=== PATIENT | female | born 1995 | race Caucasian/White ===

== ENCOUNTER 2016-10-21 01:09 | Emergency (ER) | payer MEDICAID ==
[~2016-10-21] VITALS: Ht 175.3 cm; Wt 96.7 kg
[~2016-10-21 01:09] MED LIST: ALBU8.5H3 INH; AMLO2.5T PO; BUDE10.2 INH; CHOL200024 PO; FLUT1DIS IH; HYDR25TA6 PO; LABE200T3 PO; LACO200T PO; MAGN100T PO; MULT-257 PO; TESTOSTERONE PO
[2016-10-21] MEDS ORDERED: ALBU18HF INH (02:01)
[2016-10-21] MEDS ORDERED: MELO-190 PO (02:01)
[2016-10-21] MEDS ORDERED: ONDANSETRON 2MG/ML, 2ML ONE (02:16)
[2016-10-21] MEDS ORDERED: MORPHINE SULFATE 4 MG/ML, 1ML ONE (02:16)
[2016-10-21 02:30] LABS: BLOOD UREA NITROGEN 10 mg/dL (7-18)
[2016-10-21] MEDS ORDERED: MORPHINE SULFATE 4 MG/ML, 1ML IVPush PRN (02:30)
[2016-10-21] MEDS ORDERED: ONDANSETRON 2MG/ML, 2ML IVPush ONE (02:30)
[2016-10-21] MEDS ORDERED: SODIUM CHLORIDE FLUSH 10ML SYR IVF ONE (02:30)
[2016-10-21] MEDS ORDERED: SODIUM CHLORIDE 0.9% 1,000ML IVBOLUS ONE (02:30)
[2016-10-21 02:34] LABS: ASPARTATE AMINO TRANSFERASE 18 U/L (15-37)
[2016-10-21] MEDS ORDERED: OMNIPAQUE 350 MG/ML, 100ML BOTTLE ONE (04:57)
[2016-10-21] MEDS ORDERED: SILVER NITRATE STICK TP ONE ×2 (05:30→05:40)
[2016-10-21 05:48] VITALS: BP 123/61
== END 2016-10-21 05:49 | disposition home or self-care (01) ==
LOC: ED 02:53
DX: R10.33 Periumbilical pain (principal); R11.10 Vomiting, unspecified
CPT/HCPCS: 36415; 74177; 76700; 80053; 81001; 85025; 87086; 96361; 96374; 96375; 99285; J2405; J7030; Q9967

== ENCOUNTER 2016-10-21 21:42 | Emergency (ER) | payer MEDICAID ==
[~2016-10-21] VITALS: Ht 170.2 cm; Wt 95.0 kg
[~2016-10-21 21:42] MED LIST changes: +ALBU18HF INH; +MELO-190 PO
[2016-10-21 21:49] VITALS: BP 135/89
[2016-10-21] MEDS ORDERED: SODIUM CHLORIDE FLUSH 10ML SYR IVF ONE (22:00)
[2016-10-21] MEDS ORDERED: DIPHENHYDRAMINE 50 MG/ML, 1ML IVPush ONE (22:00)
[2016-10-21] MEDS ORDERED: PROCHLORPERAZINE 5 MG/ML, 2ML IVPush ONE (22:00)
[2016-10-21] MEDS ORDERED: SODIUM CHLORIDE 0.9% 1,000ML IVBOLUS ONE (22:00)
[2016-10-21] MEDS ORDERED: METOCLOPRAMIDE 5 MG/ML, 2ML IVPush ONE (22:00)
[2016-10-21] MEDS ORDERED: METOCLOPRAMIDE 5 MG/ML, 2ML ONE (22:44)
[2016-10-21] MEDS ORDERED: DIPHENHYDRAMINE 50 MG/ML, 1ML ONE (22:44)
[2016-10-21] MEDS ORDERED: PROCHLORPERAZINE 5 MG/ML, 2ML ONE (22:44)
== END 2016-10-22 00:02 | disposition home or self-care (01) ==
LOC: ED 23:50
DX: G43.109 Migraine with aura, not intractable, without status migrainosus (principal); R10.33 Periumbilical pain
CPT/HCPCS: 70450; 81001; 87086; 96361; 96374; 96375; 99285; J0780; J1200; J2765; J7030

== ENCOUNTER 2016-11-22 09:01 | Emergency (ER) | payer MEDICAID ==
[~2016-11-22] VITALS: Ht 175.3 cm; Wt 95.3 kg
[2016-11-22 09:05] VITALS: BP 142/92
[2016-11-22] MEDS ORDERED: PHENAZOPYRIDINE 200 MG TABLET PO ONE (09:30)
[2016-11-22] MEDS ORDERED: PHENAZOPYRIDINE 200 MG TABLET ONE (09:32)
[2016-11-22] MEDS ORDERED: DIVA250T4 PO (09:35)
[2016-11-22] MEDS ORDERED: LACO200T PO (09:35)
[2016-11-22] MEDS ORDERED: LEVE500T53 PO (09:35)
[2016-11-22 09:51] LABS: HCG UR OBC PASS
[2016-11-22 09:52] LABS: PATH.CAST-FLAG NOT PRESENT; SPERM-FLAG NOT PRESENT; SRC-FLAG NOT PRESENT; XTAL-FLAG NOT PRESENT; YLC-FLAG NOT PRESENT
== END 2016-11-22 10:54 | disposition home or self-care (01) ==
LOC: ED 09:46
DX: N30.00 Acute cystitis without hematuria (principal); J45.909 Unspecified asthma, uncomplicated; G40.909 Epilepsy, unspecified, not intractable, without status epilepticus; R51 Headache; G89.29 Other chronic pain
CPT/HCPCS: 81001; 81025; 87077; 87086; 87186; 99284

== ENCOUNTER 2017-08-16 17:33 | Emergency (ER) | payer MEDICAID ==
[~2017-08-16] VITALS: Ht 175.3 cm; Wt 99.1 kg
[~2017-08-16 17:33] MED LIST changes: -ALBU8.5H3 INH; +ALBU8.5H8 INH; +CEPH-368 PO; +DIVA250T4 PO; +LEVE500T53 PO; -MELO-190 PO; +MELO7.5T31 PO; +ONDA4TAB10 PO; +[UNRECOGNIZED DRUG - OTHER] PO
[2017-08-16 17:35] VITALS: BP 135/81
[2017-08-16 18:15] LABS: MICROSCOPIC INDICATED
[2017-08-16] MEDS ORDERED: CLOTRIMAZOLE VAGINAL CRM 1%, 45GM VG ONE (21:00)
== END 2017-08-16 18:51 | disposition home or self-care (01) ==
LOC: ED 18:40
DX: O26.892 Other specified pregnancy related conditions, second trimester (principal); N89.8 Other specified noninflammatory disorders of vagina; J45.909 Unspecified asthma, uncomplicated; Z3A.21 21 weeks gestation of pregnancy
CPT/HCPCS: 81001; 99283

== ENCOUNTER 2018-03-08 03:39 | Observation (INO) | payer MEDICAID ==
[~2018-03-08] VITALS: Ht 175.3 cm; Wt 91.7 kg
[~2018-03-08 03:39] MED LIST changes: -AMLO2.5T PO; +AMLO2.5T3 PO; -LABE200T3 PO; +LABE200T6 PO; +NITR100C56 PO
[2018-03-08] MEDS ORDERED: LORA-445 PO (04:01)
[2018-03-08] MEDS ORDERED: DOCU-131 PO (04:01)
[2018-03-08] MEDS ORDERED: OMEP-110 PO (04:01)
[2018-03-08] MEDS ORDERED: DIVA-59 PO (04:01)
[2018-03-08] MEDS ORDERED: IBUP-1222 PO (04:01)
[2018-03-08] MEDS ORDERED: LEVE500T8 PO (04:01)
[2018-03-08 04:40] LABS: BASOPHILS # (AUTO) 0.05 x10^3/uL (0-0.1); BASOPHILS % (AUTO) 1 % (0-1); EOSINOPHILS # (AUTO) 0.02 x10^3/uL (0-0.4); EOSINOPHILS % (AUTO) 0 % (1-7); LYMPHOCYTES # (AUTO) 1.81 x10^3/uL (1-3.4); LYMPHOCYTES % (AUTO) 21 % (22-44); MD NO; MEAN CORPUSCULAR HEMOGLOBIN 25.1 pg (27.0-34.8); MEAN CORPUSCULAR HGB CONC 32.2 g/dL (32.4-35.8); MEAN PLATELET VOLUME 8.5 fL (7.4-10.4); MONOCYTES # (AUTO) 0.57 x10^3/uL (0.2-0.8); MONOCYTES % (AUTO) 7 % (2-9); NEUTROPHILS # (AUTO) 6.37 x10^3/uL (1.8-6.8); NEUTROPHILS % (AUTO) 72 % (42-75); PLATELET COUNT 252 x10^3/uL (130-400); RED BLOOD COUNT 4.83 x10^6/uL (3.82-5.3)
[2018-03-08 05:02] LABS: ALBUMIN 3.8 g/dL (3.4-5.0); ANION GAP 7 mmol/L (5-15); CALCIUM 8.6 mg/dL (8.5-10.1); CHLORIDE 107 mmol/L (98-107); CREATININE 0.65 mg/dL (0.55-1.02)
[2018-03-08] MEDS ORDERED: BACITRACIN ZINC OINT 500U/GM, 0.9 GM ONE (05:03)
[2018-03-08 05:11] LABS: ACETAMINOPHEN < 2 mcg/mL (10-30); SALICYLATE LEVEL < 1.7 mg/dL (2.8-20.0)
[2018-03-08] MEDS ORDERED: LEVETIRACETAM 500 MG TABLET ONE (15:17)
[2018-03-08 15:37] LABS: AMPHETAMINE SCREEN, URINE Negative (Negative); BARBITURATE SCREEN, URINE Negative (Negative); BENZODIAZEPINE SCREEN, URINE Negative (Negative); CANNABINOID SCREEN, URINE Negative (Negative); COCAINE SCREEN, URINE Negative (Negative); METHADONE SCREEN, URINE Negative (Negative); OPIATE SCREEN, URINE Negative (Negative)
[2018-03-08] MEDS ORDERED: ACETAMINOPHEN 325 MG TABLET PO PRN (18:00)
[2018-03-08] MEDS: HEPARIN 5,000 UNITS/ML, 1ML SQ SCH ×2 (18:00→19:32)
[2018-03-08] MEDS ORDERED: ONDANSETRON ODT 4 MG PO PRN ×2 (18:00→18:30)
[2018-03-08] MEDS ORDERED: ASA/APAP/ CAFFEINE TABLET PO PRN (18:00)
[2018-03-08] MEDS ORDERED: IBUPROFEN 600 MG TABLET PO PRN (18:30)
[2018-03-08] MEDS ORDERED: DOCUSATE 100 MG CAPSULE PO PRN (18:30)
[2018-03-08] MEDS ORDERED: ALBUTEROL/IPRATROPIUM 2.5MG/0.5MG, 3 ML NPPB PRN (19:00)
[2018-03-08 20:23] VITALS: BP 106/60
[2018-03-08] MEDS ORDERED: DIVALPROEX 500 MG TABLET.DR PO SCH (21:00)
[2018-03-08] MEDS ORDERED: LEVETIRACETAM 500 MG TABLET PO SCH (21:00)
[2018-03-08] MEDS: DIVALPROEX 500 MG TABLET.DR PO SCH (21:23)
[2018-03-08] MEDS: LEVETIRACETAM 500 MG TABLET PO SCH (21:24)
[2018-03-09 01:25] VITALS: BP 119/68
[2018-03-09] MEDS ORDERED: LORazepam 2 MG/ML, 1ML ONE (01:39)
[2018-03-09] MEDS: LORazepam 2 MG/ML, 1ML IVPush PRN ×4 (01:40→21:14)
[2018-03-09 07:16] VITALS: BP 107/70
[2018-03-09 09:05] VITALS: BP 129/76
[2018-03-09] MEDS: LEVETIRACETAM 500 MG TABLET PO SCH ×2 (10:13→21:14)
[2018-03-09] MEDS: LORazepam 0.5MG TABLET PO SCH (10:13)
[2018-03-09] MEDS: OMEPRAZOLE 20 MG CAPSULE.DR PO SCH (10:14)
[2018-03-09] MEDS: HEPARIN 5,000 UNITS/ML, 1ML SQ SCH ×3 (10:14→23:16)
[2018-03-09] MEDS: DIVALPROEX 500 MG TABLET.DR PO SCH ×2 (10:14→21:14)
[2018-03-09 12:51] VITALS: BP 102/41
[2018-03-09 13:01] VITALS: BP 120/70
[2018-03-09 18:30] VITALS: BP 93/62
[2018-03-10 01:29] VITALS: BP 104/61
[2018-03-10] MEDS: LORazepam 2 MG/ML, 1ML IVPush PRN (02:13)
[2018-03-10 07:50] VITALS: BP 93/52
[2018-03-10] MEDS: DIVALPROEX 500 MG TABLET.DR PO SCH (09:20)
[2018-03-10] MEDS: OMEPRAZOLE 20 MG CAPSULE.DR PO SCH (09:20)
[2018-03-10] MEDS: LEVETIRACETAM 500 MG TABLET PO SCH (09:20)
[2018-03-10] MEDS: LORazepam 0.5MG TABLET PO SCH (09:20)
[2018-03-10] MEDS: HEPARIN 5,000 UNITS/ML, 1ML SQ SCH ×2 (10:00→17:56)
[2018-03-10 12:50] VITALS: BP 106/68
[2018-03-10] MEDS ORDERED: LORazepam 1MG TABLET ONE (19:29)
[2018-03-10] MEDS ORDERED: LORazepam 1MG TABLET PO PRN (19:30)
[2018-03-10] MEDS ORDERED: PRAZOSIN 1 MG CAPSULE PO SCH (21:00)
== END 2018-03-10 20:40 ==
LOC: ED 03:56 → EDIP 17:09 → 3NE 18:14
PROVIDERS: ADMIT Internal Medicine; ATTEND Internal Medicine
DX: R45.851 Suicidal ideations (principal); F41.0 Panic disorder [episodic paroxysmal anxiety]; G40.909 Epilepsy, unspecified, not intractable, without status epilepticus; J45.909 Unspecified asthma, uncomplicated; M06.9 Rheumatoid arthritis, unspecified; F32.9 Major depressive disorder, single episode, unspecified; F43.10 Post-traumatic stress disorder, unspecified; F43.24 Adjustment disorder with disturbance of conduct; F60.3 Borderline personality disorder; G89.11 Acute pain due to trauma
CPT/HCPCS: 36415; 73110; 73564; 80048; 80164; 80307; 80329; 82040; 84703; 85025; 95816; 96372; 96374; 96376; 99285; G0378; J1644; J2060; G0480

== ENCOUNTER 2018-04-26 21:26 | Emergency (ER) | payer MEDICAID ==
[~2018-04-26] VITALS: Ht 172.7 cm; Wt 89.0 kg
[~2018-04-26 21:26] MED LIST changes: +DIVA-59 PO; +DOCU-131 PO; +IBUP-1222 PO; +LEVE500T8 PO; +LORA-445 PO; +OMEP-110 PO
[2018-04-26 21:53] LABS: BASOPHILS # (AUTO) 0.09 x10^3/uL (0-0.1); BASOPHILS % (AUTO) 1 % (0-1); EOSINOPHILS # (AUTO) 0.04 x10^3/uL (0-0.4); EOSINOPHILS % (AUTO) 0 % (1-7); LYMPHOCYTES # (AUTO) 2.53 x10^3/uL (1-3.4); LYMPHOCYTES % (AUTO) 27 % (22-44); MD NO; MEAN CORPUSCULAR HEMOGLOBIN 25.3 pg (27.0-34.8); MEAN CORPUSCULAR HGB CONC 33.1 g/dL (32.4-35.8); MEAN CORPUSCULAR VOLUME 76.3 fL (80-100); MEAN PLATELET VOLUME 7.5 fL (7.4-10.4); MONOCYTES # (AUTO) 0.71 x10^3/uL (0.2-0.8); MONOCYTES % (AUTO) 8 % (2-9); NEUTROPHILS # (AUTO) 6.08 x10^3/uL (1.8-6.8); NEUTROPHILS % (AUTO) 64 % (42-75); PLATELET COUNT 297 x10^3/uL (130-400); RED BLOOD COUNT 4.46 x10^6/uL (3.82-5.3); RED CELL DISTRIBUTION WIDTH 18.6 % (9.6-15.2)
[2018-04-26 22:06] LABS: ALBUMIN 3.4 g/dL (3.4-5.0); ANION GAP 6 mmol/L (5-15); CALCIUM 8.3 mg/dL (8.5-10.1); CHLORIDE 109 mmol/L (98-107); CREATININE 0.68 mg/dL (0.55-1.02)
[2018-04-26] MEDS ORDERED: GABA300C10 PO (22:21)
[2018-04-26] MEDS ORDERED: LEVE500T53 PO (22:21)
[2018-04-26] MEDS ORDERED: ALBU18HF INH (22:21)
[2018-04-26] MEDS ORDERED: CHOL2000 PO (22:21)
[2018-04-26] MEDS ORDERED: ESCI10TA10 PO (22:21)
[2018-04-26 23:01] VITALS: BP 96/61
== END 2018-04-26 23:04 | disposition home or self-care (01) ==
LOC: ED 22:08
DX: R56.9 Unspecified convulsions (principal); G89.29 Other chronic pain; J45.909 Unspecified asthma, uncomplicated
CPT/HCPCS: 36415; 80048; 82040; 85025; 99284

== ENCOUNTER 2018-04-28 07:56 | Inpatient (IN) | payer MEDICAID ==
[~2018-04-28] VITALS: Ht 175.3 cm; Wt 85.7 kg
[~2018-04-28 07:56] MED LIST changes: +CHOL2000 PO; +ESCI10TA10 PO; +GABA300C10 PO
[2018-04-28] MEDS ORDERED: ONDANSETRON ODT 4 MG ONE (08:21)
[2018-04-28] MEDS ORDERED: KETOROLAC 30 MG/1 ML ONE (08:21)
[2018-04-28] MEDS ORDERED: KETOROLAC 30 MG/1 ML IM ONE (08:30)
[2018-04-28] MEDS ORDERED: ONDANSETRON ODT 4 MG PO ONE (08:30)
[2018-04-28] MEDS ORDERED: MIDAZOLAM 1 MG/ML, 2ML ONE (09:51)
[2018-04-28] MEDS ORDERED: LORazepam 2 MG/ML, 1ML ONE ×2 (09:54→10:43)
[2018-04-28] MEDS ORDERED: SODIUM CHLORIDE FLUSH 10ML SYR IVF ONE (10:00)
[2018-04-28] MEDS ORDERED: LORazepam 2 MG/ML, 1ML IVPush ONE ×2 (10:00→11:00)
[2018-04-28 10:46] LABS: BASOPHILS # (AUTO) 0.02 x10^3/uL (0-0.1); BASOPHILS % (AUTO) 0 % (0-1); EOSINOPHILS # (AUTO) 0.04 x10^3/uL (0-0.4); EOSINOPHILS % (AUTO) 1 % (1-7); LYMPHOCYTES # (AUTO) 2.11 x10^3/uL (1-3.4); LYMPHOCYTES % (AUTO) 34 % (22-44); MD NO; MEAN CORPUSCULAR HEMOGLOBIN 25.3 pg (27.0-34.8); MEAN CORPUSCULAR VOLUME 76.7 fL (80-100); MONOCYTES # (AUTO) 0.54 x10^3/uL (0.2-0.8); MONOCYTES % (AUTO) 9 % (2-9); NEUTROPHILS # (AUTO) 3.53 x10^3/uL (1.8-6.8); NEUTROPHILS % (AUTO) 57 % (42-75); PLATELET COUNT 253 x10^3/uL (130-400); RED BLOOD COUNT 4.43 x10^6/uL (3.82-5.3); RED CELL DISTRIBUTION WIDTH 18.2 % (9.6-15.2)
[2018-04-28 10:57] LABS: ALANINE AMINOTRANSFERASE 19 U/L (12-78); ALBUMIN 3.3 g/dL (3.4-5.0); ANION GAP 8 mmol/L (5-15); CALCIUM 8.1 mg/dL (8.5-10.1); CHLORIDE 106 mmol/L (98-107); CREATININE 0.62 mg/dL (0.55-1.02)
[2018-04-28 11:01] LABS: ALKALINE PHOSPHATASE 90 U/L (45-117); BILIRUBIN,TOTAL 0.2 mg/dL (0.2-1.0); TOTAL PROTEIN 6.7 g/dL (6.4-8.2)
[2018-04-28 11:41] LABS: AMPHETAMINE SCREEN, URINE Negative (Negative); BARBITURATE SCREEN, URINE Negative (Negative); BENZODIAZEPINE SCREEN, URINE Positive (Negative); CANNABINOID SCREEN, URINE Negative (Negative); COCAINE SCREEN, URINE Negative (Negative); METHADONE SCREEN, URINE Negative (Negative); OPIATE SCREEN, URINE Positive (Negative)
[2018-04-28] MEDS ORDERED: ONDANSETRON 2MG/ML, 2ML IVPush PRN (12:30)
[2018-04-28] MEDS ORDERED: LORazepam 1MG TABLET PO PRN (12:30)
[2018-04-28] MEDS ORDERED: ONDANSETRON ODT 4 MG PO PRN (12:30)
[2018-04-28] MEDS ORDERED: ACETAMINOPHEN 325 MG TABLET PO PRN (12:30)
[2018-04-28 12:42] VITALS: BP 100/67
[2018-04-28 14:08] VITALS: BP 100/67
[2018-04-28] MEDS: IBUPROFEN 600 MG TABLET PO SCH ×2 (16:21→20:31)
[2018-04-28] MEDS: ENOXAPARIN 40 MG/0.4 ML SQ SCH (16:22)
[2018-04-28] MEDS: LORazepam 2 MG/ML, 1ML IVPush PRN (19:12)
[2018-04-28 19:42] VITALS: BP 99/65
[2018-04-28] MEDS: DOCUSATE 100 MG CAPSULE PO SCH (20:30)
[2018-04-28] MEDS: DIVALPROEX 500 MG TABLET.DR PO SCH (20:31)
[2018-04-28] MEDS ORDERED: LEVETIRACETAM 500 MG TABLET PO SCH (21:00)
[2018-04-29 01:11] VITALS: BP 99/58
[2018-04-29] MEDS: IBUPROFEN 600 MG TABLET PO SCH ×4 (05:28→20:37)
[2018-04-29 06:58] VITALS: BP 99/65
[2018-04-29] MEDS: LORazepam 2 MG/ML, 1ML IVPush PRN ×3 (08:48→18:48)
[2018-04-29] MEDS: DOCUSATE 100 MG CAPSULE PO SCH ×2 (09:00→20:36)
[2018-04-29] MEDS ORDERED: LEVETIRACETAM 500 MG TABLET PO SCH (09:00)
[2018-04-29] MEDS: OMEPRAZOLE 20 MG CAPSULE.DR PO SCH (10:20)
[2018-04-29] MEDS: DIVALPROEX 500 MG TABLET.DR PO SCH ×2 (10:21→20:37)
[2018-04-29] MEDS: KETOROLAC 30 MG/1 ML IV PRN (11:45)
[2018-04-29 12:55] VITALS: BP 100/66
[2018-04-29] MEDS: ENOXAPARIN 40 MG/0.4 ML SQ SCH (16:40)
[2018-04-29 21:07] VITALS: BP 96/65
[2018-04-30] MEDS: KETOROLAC 30 MG/1 ML IV PRN (01:13)
[2018-04-30 01:53] VITALS: BP 94/58
[2018-04-30] MEDS: IBUPROFEN 600 MG TABLET PO SCH ×3 (06:08→16:00)
[2018-04-30] MEDS: DOCUSATE 100 MG CAPSULE PO SCH (09:00)
[2018-04-30 09:26] VITALS: BP 99/54
[2018-04-30] MEDS: DIVALPROEX 500 MG TABLET.DR PO SCH (10:42)
[2018-04-30] MEDS: OMEPRAZOLE 20 MG CAPSULE.DR PO SCH (10:43)
[2018-04-30 12:25] VITALS: BP 101/68
[2018-04-30] MEDS ORDERED: DIVA-61 PO ×2 (15:29)
[2018-04-30] MEDS: ENOXAPARIN 40 MG/0.4 ML SQ SCH (16:00)
== END 2018-04-30 17:55 | disposition home or self-care (01) | DRG 880 ==
LOC: ED 09:02 → EDIP 11:42 → 4EST 12:30
PROVIDERS: ADMIT Internal Medicine; ATTEND Internal Medicine
DX: F44.5 Conversion disorder with seizures or convulsions (principal); F84.0 Autistic disorder; F32.9 Major depressive disorder, single episode, unspecified; F41.0 Panic disorder [episodic paroxysmal anxiety]; F43.10 Post-traumatic stress disorder, unspecified; F51.04 Psychophysiologic insomnia; F60.3 Borderline personality disorder; M06.9 Rheumatoid arthritis, unspecified; J45.909 Unspecified asthma, uncomplicated; Z91.19 Patient's noncompliance with other medical treatment and regimen; F41.9 Anxiety disorder, unspecified
CPT/HCPCS: 36415; 80053; 80164; 80177; 80307; 82962; 84703; 85025; 93005; 95951; 96372; 96374; 96375; 99285; G0378; J1650; J1885; Q0162; J2060

== ENCOUNTER 2018-10-04 23:53 | Emergency (ER) | payer MEDICAID ==
[~2018-10-04] VITALS: Ht 175.3 cm; Wt 95.0 kg
[~2018-10-04 23:53] MED LIST changes: -AMLO2.5T3 PO; +AMLO2.5T5 PO; +DIVA-61 PO
--- NOTE | 2018-10-05 | NUR ---
BIB [facility] FROM HOME W CO SZ. ARRIVES A&OX4, PWD. PT DENIES MIDLINE NECK/BACK PAIN, ORAL TRAUMA, INCONTINENCE. SUPERFICIAL WOUND NOTED ON R FOREHEAD. NO BLEEDING NOTED. HX OF 'EPILEPTIC PSEUDO SEIZURES' PER SO SZ PRECAUTIONS IN PLACE. SO AT BEDSIDE. BP/SPO2 MONITORING IN PLACE.
[2018-10-05 00:45] LABS: BASOPHILS # (AUTO) 0.05 x10^3/uL (0-0.1); BASOPHILS % (AUTO) 1 % (0-1); EOSINOPHILS # (AUTO) 0.03 x10^3/uL (0-0.4); EOSINOPHILS % (AUTO) 0 % (1-7); LYMPHOCYTES # (AUTO) 2.23 x10^3/uL (1-3.4); LYMPHOCYTES % (AUTO) 23 % (22-44); MD NO; MEAN CORPUSCULAR HEMOGLOBIN 23.2 pg (27.0-34.8); MEAN CORPUSCULAR HGB CONC 32.5 g/dL (32.4-35.8); MEAN CORPUSCULAR VOLUME 71.5 fL (80-100); MEAN PLATELET VOLUME 9.1 fL (7.4-10.4); MONOCYTES # (AUTO) 0.59 x10^3/uL (0.2-0.8); MONOCYTES % (AUTO) 6 % (2-9); NEUTROPHILS # (AUTO) 6.68 x10^3/uL (1.8-6.8); NEUTROPHILS % (AUTO) 70 % (42-75); PLATELET COUNT 230 x10^3/uL (130-400); RED BLOOD COUNT 5.43 x10^6/uL (3.82-5.3); RED CELL DISTRIBUTION WIDTH 19.5 % (9.6-15.2)
[2018-10-05 00:57] LABS: ANION GAP 4 mmol/L (5-15); CALCIUM 8.5 mg/dL (8.5-10.1); CHLORIDE 106 mmol/L (98-107)
[2018-10-05 01:00] LABS: ALANINE AMINOTRANSFERASE 24 U/L (12-78); ALKALINE PHOSPHATASE 133 U/L (45-117); BILIRUBIN,TOTAL 0.2 mg/dL (0.2-1.0); CREATININE 0.89 mg/dL (0.55-1.02); TOTAL PROTEIN 7.5 g/dL (6.4-8.2)
[2018-10-05] MEDS ORDERED: LORazepam 1MG TABLET ONE (01:17)
[2018-10-05 01:20] VITALS: BP 110/67
--- NOTE | 2018-10-05 01:20 | NUR ---
PT MEDICATED PER EMAR
[2018-10-05] MEDS ORDERED: DIVALPROEX 500 MG TAB.ER.24H PO STA (01:23)
[2018-10-05] MEDS ORDERED: LORazepam 1MG TABLET PO ONE (01:30)
--- NOTE | 2018-10-05 01:40 | NUR ---
PT MEDICATED PER EMAR
[2018-10-05] MEDS ORDERED: DIVALPROEX 500 MG TAB.ER.24H ONE (01:41)
--- NOTE | 2018-10-05 02:02 | NUR ---
DC EDUCATION PROVIDED, PT DEMONSTRATES UNDERSTANDING. PT AMBULATED STEADILY TO DC WITH RN AND SO. PT TO WALK TO [facility] W/ SO
== END 2018-10-05 02:05 | disposition home or self-care (01) ==
LOC: ED 10-05 00:33
DX: G40.419 Other generalized epilepsy and epileptic syndromes, intractable, without status epilepticus (principal); F32.9 Major depressive disorder, single episode, unspecified; G43.909 Migraine, unspecified, not intractable, without status migrainosus
CPT/HCPCS: 36415; 80053; 85025; 93005; 99284

== ENCOUNTER 2018-11-02 20:57 | Emergency (ER) | payer MEDICAID ==
[~2018-11-02] VITALS: Ht 175.3 cm; Wt 100.0 kg
[2018-11-02] MEDS ORDERED: LEVE500T53 PO (21:11)
[2018-11-02] MEDS ORDERED: TEST200V3 IM (21:11)
--- NOTE | 2018-11-02 21:20 | NUR ---
ELSIE NIEVES AFTER HAVING SEIZURE AT HOME. PT FELL AND IS HAVING PAIN TO LEFT SHOULDER RADIATING DOWN TO LEFT WRIST. PT TAKES KEPPRA AND DEPAKOTE AND AGREES TO TAKING MEDICATIONS PRESCRIBED. ICE PACK APPLIED TO LEFT WRIST. Addendum: 11/02/18 at 2135 by SHERI BLOOD SUGAR PER LIZBETH [id number]
[2018-11-02] MEDS ORDERED: IBUPROFEN 600 MG TABLET ONE (21:47)
[2018-11-02] MEDS ORDERED: ACETAMINOPHEN 500 MG TABLET ONE (21:47)
--- NOTE | 2018-11-02 21:49 | NUR ---
PT GOING TO IMAGING.
[2018-11-02] MEDS ORDERED: IBUPROFEN 200 MG TABLET PO ONE (22:00)
[2018-11-02] MEDS ORDERED: ACETAMINOPHEN 500 MG TABLET PO ONE (22:00)
[2018-11-02 22:20] LABS: BASOPHILS # (AUTO) 0.03 x10^3/uL (0-0.1); BASOPHILS % (AUTO) 0 % (0-1); EOSINOPHILS # (AUTO) 0.01 x10^3/uL (0-0.4); EOSINOPHILS % (AUTO) 0 % (1-7); LYMPHOCYTES # (AUTO) 2.06 x10^3/uL (1-3.4); LYMPHOCYTES % (AUTO) 18 % (22-44); MD NO; MEAN CORPUSCULAR HEMOGLOBIN 23.9 pg (27.0-34.8); MEAN CORPUSCULAR VOLUME 74.7 fL (80-100); MEAN PLATELET VOLUME 8.7 fL (7.4-10.4); MONOCYTES # (AUTO) 0.47 x10^3/uL (0.2-0.8); MONOCYTES % (AUTO) 4 % (2-9); NEUTROPHILS # (AUTO) 8.78 x10^3/uL (1.8-6.8); NEUTROPHILS % (AUTO) 77 % (42-75); PLATELET COUNT 252 x10^3/uL (130-400); RED BLOOD COUNT 5.49 x10^6/uL (3.82-5.3); RED CELL DISTRIBUTION WIDTH 21.4 % (9.6-15.2)
[2018-11-02 22:30] LABS: ALBUMIN 3.9 g/dL (3.4-5.0); ANION GAP 7 mmol/L (5-15); CALCIUM 8.7 mg/dL (8.5-10.1); CHLORIDE 107 mmol/L (98-107); CREATININE 0.83 mg/dL (0.55-1.02)
[2018-11-02 23:17] VITALS: BP 108/54
--- NOTE | 2018-11-02 23:17 | NUR ---
SPLINT APPLIED TO LEFT WRIST. IV DISCONTINUED. VSS. Patient/Caregiver given discharge instructions and they have confirmed that they understand the instructions. Patient ambulatory with steady gait.
== END 2018-11-02 23:39 | disposition home or self-care (01) ==
LOC: ED 22:02
DX: G40.409 Other generalized epilepsy and epileptic syndromes, not intractable, without status epilepticus (principal); G89.11 Acute pain due to trauma; M25.512 Pain in left shoulder; M25.532 Pain in left wrist; F32.9 Major depressive disorder, single episode, unspecified; G43.909 Migraine, unspecified, not intractable, without status migrainosus
CPT/HCPCS: 29260; 36415; 70450; 80048; 82040; 85025; 99284

== ENCOUNTER 2019-06-18 19:18 | Emergency (ER) | payer MEDICAID ==
[~2019-06-18] VITALS: Ht 175.3 cm; Wt 101.2 kg
[~2019-06-18 19:18] MED LIST changes: +NAPR220C2 PO; +TEST200V3 IM
--- NOTE | 2019-06-18 20:39 | NUR ---
PT HAS C/O HEADACHE X 2 HRS. DESCRIBED THROBBING. FEELING THE ROOM SPINNING. + NAUSEA. PT STATES HX OF VERTIGO. NOT IN ANY DISTRESS. WAITING FOR FURTHER ORDERS.
--- NOTE | 2019-06-18 20:47 | NUR ---
REPORT TO MICHAEL
[2019-06-18] MEDS ORDERED: KETOROLAC 60 MG/2 ML ONE (20:58)
[2019-06-18] MEDS ORDERED: ONDANSETRON ODT 4 MG ONE (20:58)
[2019-06-18] MEDS ORDERED: HYDROcodone/APAP 5/325 TABLET ONE (20:59)
[2019-06-18] MEDS ORDERED: ONDANSETRON ODT 4 MG PO ONE (21:00)
[2019-06-18] MEDS ORDERED: HYDROcodone/APAP 5/325 TABLET PO ONE (21:00)
--- NOTE | 2019-06-18 21:10 | NUR ---
REPORT RECEIVED AND CARE ASSUMED. PT MEDICATED PER AUG FOR 8/ LEE. STATES HX OF MIGRAINES BUT DIZZINESS IS NEW. PT IS A&OX4 WITH CLEAR SPEECH. MOVING ALL EXTREMITIES. VSS. CALL LIGHT IN REACH. PT TO BE D/C HOME AFTER REASSESS.
[2019-06-18 21:46] VITALS: BP 111/53
[2019-06-18] MEDS ORDERED: KETOROLAC 60 MG/2 ML IM ONE (22:00)
== END 2019-06-18 21:48 | disposition home or self-care (01) ==
LOC: ED 21:10
DX: J06.9 Acute upper respiratory infection, unspecified (principal); G44.219 Episodic tension-type headache, not intractable; J45.909 Unspecified asthma, uncomplicated; G40.909 Epilepsy, unspecified, not intractable, without status epilepticus
CPT/HCPCS: 96372; 99283; J1885; Q0162

== ENCOUNTER 2019-09-16 21:19 | Inpatient (IN) | payer MEDICAID ==
[~2019-09-16] VITALS: Ht 175.3 cm; Wt 98.7 kg
--- NOTE | 2019-09-16 21:35 | NUR ---
PT BIB [facility] TONIGHT AFTER VOMITING TONIGHT AFTER INGESTING PIZZA AT APPROXIMATELY 1800 TONIGHT. PT DENIES RESPIRATORY COMPLAINTS. PER EMS, PT WAS GIVEN 4 MG PO ZOFRAN EN ROUTE TO [facility] ED. PT ARRIVES TO [facility] ED WITH EMESIS CONTROLLED. PT ATTACHED TO VS MONITORS. VSS AT THIS TIME. PT VERBALIZES UNDERSTANDING OF ER PROCESS. CALL LIGHT IS WITHIN REACH AT THIS TIME.
--- NOTE | 2019-09-16 21:37 | NUR ---
DR SAUCEDO AT BS.
[2019-09-16] MEDS ORDERED: ONDANSETRON ODT 4 MG PO ONE (22:00)
[2019-09-16 22:09] LABS: MEAN CORPUSCULAR HEMOGLOBIN 27.6 pg (27.0-34.8); MEAN CORPUSCULAR HGB CONC 33.3 g/dL (32.4-35.8); MEAN CORPUSCULAR VOLUME 82.9 fL (80-100); PLATELET COUNT 236 x10^3/uL (130-400); RED BLOOD COUNT 5.67 x10^6/uL (3.82-5.3); RED CELL DISTRIBUTION WIDTH 16.8 % (9.6-15.2)
[2019-09-16 22:20] LABS: ALANINE AMINOTRANSFERASE 40 U/L (12-78); ALBUMIN 4.4 g/dL (3.4-5.0); ANION GAP 5 mmol/L (5-15); CALCIUM 9.2 mg/dL (8.5-10.1); CHLORIDE 105 mmol/L (98-107); CREATININE 0.87 mg/dL (0.55-1.02)
[2019-09-16 22:22] LABS: ALKALINE PHOSPHATASE 100 U/L (45-117); BILIRUBIN,TOTAL 0.5 mg/dL (0.2-1.0); TOTAL PROTEIN 8.4 g/dL (6.4-8.2)
[2019-09-16 22:39] LABS: MD YES
[2019-09-16 22:41] LABS: BASOS#(MANUAL) 0.37 x10^3/uL (0-0.1); BASOS% (MANUAL) 2 % (0-1); LYMPH#(MANUAL) 1.31 x10^3/uL (1-3.4); LYMPHS% (MANUAL) 7 % (22-44); MONOS% (MANUAL) 8 % (2-9); SEG#(MANUAL) 15.52 x10^3/uL (1.8-6.8); SEGS% (MANUAL) 83 % (42-75)
[2019-09-16 22:42] LABS: <PLATELET ESTIMATE> ADEQUATE; <PLT MORPHOLOGY> NORMAL PLT MORPH; ANISOCYTOSIS 1+
[2019-09-16] MEDS ORDERED: ONDANSETRON ODT 4 MG ONE (22:51)
--- NOTE | 2019-09-16 23:00 | NUR ---
INSTRUCTED PT TO VOID WHEN POSSIBLE. PT STATES SHE IS UNABLE TO VOID FOR UA. PT PROVIDED WITH ANOTHER GLASS OF WATER AND MEDICATED FOR NAUSEA PER MAR. CALL LIGHT IS WITHIN REACH.
--- NOTE | 2019-09-16 23:20 | NUR ---
CT PENDING HCG.
[2019-09-16] MEDS ORDERED: ONDANSETRON 2MG/ML, 2ML IVPush ONE (23:30)
[2019-09-16] MEDS ORDERED: MORPHINE SULFATE 4 MG/ML, 1ML IVPush PRN (23:30)
[2019-09-16] MEDS ORDERED: MORPHINE SULFATE 4 MG/ML, 1ML ONE (23:38)
--- NOTE | 2019-09-17 00:04 | NUR ---
PT REFUSED MEDICATIONS PER MAR.
[2019-09-17] MEDS ORDERED: HYDROmorphone 2 MG/ML, 1ML ONE (00:22)
[2019-09-17] MEDS ORDERED: CEFOTETAN PMX 1GM/50ML 50 ML IV ONE (00:30)
[2019-09-17] MEDS ORDERED: SODIUM CHLORIDE 0.9% 1,000ML IVBOLUS ONE (00:30)
[2019-09-17] MEDS ORDERED: CEFOTETAN PMX 1GM/50ML 50 ML ONE (00:34)
[2019-09-17] MEDS: HYDROmorphone 1 MG/ML, 1ML INJ IVPush PRN ×2 (00:45→01:08)
[2019-09-17] MEDS ORDERED: SODIUM CHLORIDE 0.9% 1,000 ML IV ONE (00:50)
[2019-09-17] MEDS ORDERED: ONDANSETRON 2MG/ML, 2ML ONE ×2 (00:54→07:28)
[2019-09-17] MEDS ORDERED: HYDROmorphone 1 MG/ML, 1ML INJ IVPush PRN (01:00)
[2019-09-17] MEDS ORDERED: ONDANSETRON 2MG/ML, 2ML IVPush PRN (01:00)
--- NOTE | 2019-09-17 01:11 | NUR ---
PT ATTACHED TO TRAVEL ATTENDANTS AT THIS TIME. PT PLACED ON SUPPLEMENTAL O2 TO KEEP OXYGEN SATURATION ABOVE 96%. PT PROVIDED WARM BLANKET AT THIS TIME.
--- NOTE | 2019-09-17 01:44 | NUR ---
REPORT GIVEN TO BALDO SCHERER. ALL QUESTIONS ANSWERED. MED REC COMPLETED AND DISCUSSED WITH FLOOR BALDO SCHERER. TECH PAGED FOR TRANSPORT OF PT TO FLOOR AT THIS TIME.
[2019-09-17 02:00] VITALS: BP 118/80
[2019-09-17 02:30] VITALS: BP 118/83
[2019-09-17] MEDS ORDERED: BUPIVACAINE/PF-EPI 0.5% 1:200K ONE (06:15)
[2019-09-17] MEDS ORDERED: EPINEPHRINE 1 MG/ML, 1ML ONE (06:15)
[2019-09-17] MEDS ORDERED: BUPIVACAINE/PF 0.25% ONE (06:15)
[2019-09-17] MEDS ORDERED: THROMBIN 5,000 UNIT VIAL TP ONE (06:15)
[2019-09-17] MEDS ORDERED: FENTANYL PF 250 MCG/5ML ONE (06:55)
[2019-09-17] MEDS ORDERED: CEFOTETAN 2 GM ONE (07:04)
[2019-09-17] MEDS ORDERED: BUPIVACAINE/PF-EPI 0.5% 1:200K INFIL ONE (07:15)
[2019-09-17] MEDS ORDERED: SUCCINYLCHOLINE 20 MG/ML, 10ML ONE (07:28)
[2019-09-17] MEDS ORDERED: KETOROLAC 30 MG/1 ML ONE (07:28)
[2019-09-17] MEDS ORDERED: GLYCOPYRROLATE 0.2MG/1ML, 5ML ONE (07:28)
[2019-09-17] MEDS ORDERED: NEOSTIGMINE 1 MG/ML, 10ML ONE (07:28)
[2019-09-17] MEDS ORDERED: PROPOFOL 10 MG/ML, 20ML ONE (07:28)
[2019-09-17] MEDS ORDERED: DEXAMETHASONE 4 MG/ML, 1ML ONE (07:28)
[2019-09-17] MEDS ORDERED: ROCURONIUM 10MG/ML,5ML ONE (07:28)
[2019-09-17 08:00] VITALS: BP 124/81
[2019-09-17] MEDS ORDERED: OXYcodone 5 MG/5 ML ORAL.SOL UDC ONE (08:27)
[2019-09-17] MEDS ORDERED: OXYcodone 5 MG/5 ML ORAL.SOL UDC PO PRN ×2 (08:30)
[2019-09-17] MEDS ORDERED: HYDROmorphone 2 MG/ML, 1ML IVPush PRN (08:30)
[2019-09-17] MEDS ORDERED: MIDAZOLAM 1 MG/ML, 2ML IV PRN (08:30)
[2019-09-17] MEDS ORDERED: ALBUTEROL/IPRATROPIUM 2.5MG/0.5MG, 3 ML NPPB PRN (08:30)
[2019-09-17] MEDS ORDERED: METOPROLOL 1 MG/ML, 5ML IV PRN (08:30)
[2019-09-17] MEDS ORDERED: hydrALAzine 20 MG/ML, 1ML IV PRN (08:30)
[2019-09-17] MEDS ORDERED: MEPERIDINE/PF 25MG/ML,1ML IVPush PRN (08:30)
[2019-09-17] MEDS ORDERED: FENTANYL PF 100 MCG/2ML IV PRN (08:30)
[2019-09-17] MEDS ORDERED: PROMETHAZINE 25 MG/ML, 1ML IV PRN (08:30)
[2019-09-17] MEDS ORDERED: ACETAMINOPHEN 325 MG TABLET PO PRN (08:30)
[2019-09-17] MEDS ORDERED: OXYcodone/APAP 5/325MG TABLET PO PRN (10:00)
[2019-09-17] MEDS ORDERED: OXYC-302 PO (10:35)
[2019-09-17] MEDS ORDERED: POLY17PO5 PO (10:37)
[2019-09-17 12:00] VITALS: BP 99/68
[2019-09-17] MEDS ORDERED: ONDANSETRON 4 MG TABLET ONE (15:29)
[2019-09-17 15:51] VITALS: BP 124/62
== END 2019-09-17 16:29 | disposition home or self-care (01) | DRG 419 ==
LOC: ED 21:38 → EDIP 09-17 00:53 → 3N 09-17 01:59 → 4NE 09-17 09:00
PROVIDERS: ADMIT Colon & Rectal Surgery; ATTEND Colon & Rectal Surgery
PROC: 0FT44ZZ Resection of Gallbladder, Percutaneous Endoscopic Approach (ICD-10-PCS; principal; 2019-09-17 07:00)
DX: K80.00 Calculus of gallbladder with acute cholecystitis without obstruction (principal); G40.909 Epilepsy, unspecified, not intractable, without status epilepticus; J45.909 Unspecified asthma, uncomplicated; M06.9 Rheumatoid arthritis, unspecified
CPT/HCPCS: 36415; 96374; 96375; 99285; J3490; 76700; 80053; 83690; 84703; 85025; 88304; G0378; J0171; J1100; J1170; J1885; J2405; J2704; J2710; J3010; Q0162; J0330; J7030

== ENCOUNTER 2020-01-12 06:39 | Emergency (ER) | payer MEDICAID ==
[~2020-01-12] VITALS: Ht 175.3 cm; Wt 101.9 kg
[~2020-01-12 06:39] MED LIST changes: +OXYC-302 PO; +POLY17PO5 PO
[2020-01-12 06:42] VITALS: BP 130/77
[2020-01-12] MEDS ORDERED: HYDROcodone/APAP 5/325 TABLET PO ONE (07:00)
[2020-01-12] MEDS ORDERED: DIAZEPAM 5 MG TABLET PO ONE (07:00)
[2020-01-12] MEDS ORDERED: DIAZEPAM 5 MG TABLET ONE (07:00)
[2020-01-12] MEDS ORDERED: HYDROcodone/APAP 5/325 TABLET ONE (07:01)
[2020-01-12 08:48] LABS: MICROSCOPIC INDICATED
--- NOTE | 2020-01-12 09:23 | NUR ---
Patient given discharge instructions and Rx, they have confirmed that they understand the instructions. Patient ambulatory with steady gait.
== END 2020-01-12 09:31 | disposition home or self-care (01) ==
LOC: ED 07:06
DX: M48.54XA Collapsed vertebra, not elsewhere classified, thoracic region, initial encounter for fracture (principal); J45.909 Unspecified asthma, uncomplicated; G43.909 Migraine, unspecified, not intractable, without status migrainosus; M06.9 Rheumatoid arthritis, unspecified; F17.290 Nicotine dependence, other tobacco product, uncomplicated
CPT/HCPCS: 71046; 72072; 81001; 99284

== ENCOUNTER 2020-12-03 23:32 | Emergency (ER) | payer MEDICAID ==
[~2020-12-03] VITALS: Ht 175.3 cm; Wt 105.7 kg
[~2020-12-03 23:32] MED LIST changes: -OXYC-302 PO; +OXYC1TAB14 PO
[2020-12-04] MEDS ORDERED: KETOROLAC 30 MG/1 ML ONE (00:05)
[2020-12-04] MEDS ORDERED: KETOROLAC 30 MG/1 ML IVPush ONE (00:30)
[2020-12-04] MEDS ORDERED: SODIUM CHLORIDE 0.9% 1,000ML IVBOLUS ONE (00:30)
--- NOTE | 2020-12-04 00:31 | NUR ---
Patient presents to ER c/o bilat low back pain since [id number]. Patient states she had a BM earlier of diarrhea which is not new; patient states she has had diarrhea since her gallbladder surg last year. No urinary symptoms. Denies N/V. Patient is in NAD. Respirations even and unlabored.
[2020-12-04 00:35] LABS: BASOPHILS % (AUTO) 0 % (0-1); EOSINOPHILS % (AUTO) 0 % (1-7); LYMPHOCYTES % (AUTO) 17 % (22-44); MEAN CORPUSCULAR HEMOGLOBIN 30.7 pg (27.0-34.8); MEAN CORPUSCULAR HGB CONC 34.8 g/dL (32.4-35.8); MEAN PLATELET VOLUME 7.9 fL (7.4-10.4); MONOCYTES % (AUTO) 6 % (2-9); NEUTROPHILS % (AUTO) 76 % (42-75); PLATELET COUNT 223 x10^3/uL (130-400); RED BLOOD COUNT 5.57 x10^6/uL (3.82-5.3)
[2020-12-04 00:37] LABS: MICROSCOPIC AUTO
[2020-12-04 00:46] LABS: ALBUMIN 4.2 g/dL (3.4-5.0); ANION GAP 6 mmol/L (5-15); CALCIUM 9.1 mg/dL (8.5-10.1); CHLORIDE 106 mmol/L (98-107)
[2020-12-04 00:52] LABS: ALANINE AMINOTRANSFERASE 46 U/L (12-78); ALKALINE PHOSPHATASE 91 U/L (45-117); BILIRUBIN,TOTAL 0.7 mg/dL (0.2-1.0); CREATININE 1.07 mg/dL (0.55-1.02); TOTAL PROTEIN 8.4 g/dL (6.4-8.2)
[2020-12-04 01:53] VITALS: BP 145/84
--- NOTE | 2020-12-04 02:41 | NUR ---
Discharge instructions given. All questions and concerns addressed. Patient ambulatory with a steady gait. Belongings with patient.
== END 2020-12-04 02:42 | disposition home or self-care (01) ==
LOC: ED 12-04 02:21
DX: R10.31 Right lower quadrant pain (principal); R10.32 Left lower quadrant pain; I10 Essential (primary) hypertension; G43.909 Migraine, unspecified, not intractable, without status migrainosus; J45.909 Unspecified asthma, uncomplicated; M06.9 Rheumatoid arthritis, unspecified
CPT/HCPCS: 36415; 76830; 80053; 81001; 83690; 84703; 85025; 96374; 99284; J1885; J7030